=== PATIENT | female | born 1975 | race Caucasian/White ===

== ENCOUNTER 2020-05-28 19:40 | Emergency (ER) | payer BC, OTHER ==
[~2020-05-28 19:40] MED LIST: Iopamidol-370 76% 500 ML 1 ML ONE
--- NOTE | 2020-05-28 20:19 | RAD ---
XR Chest 1 View Portable History: Shortness of breath Comparison: None. Findings: Lungs are clear. No pneumothorax or effusion. Cardiac silhouette and mediastinal contours a re within normal limits. No acute osseous abnormality. Impression: No acute intrathoracic abnormality.
[2020-05-28] MEDS ORDERED: Albuterol 200 PUFF (6.7GM INHALER) INH PRN (20:25)
[2020-05-28] MEDS ORDERED: Dexamethasone 10 MG/ML VIAL SLOW IVP SCH (20:30)
[2020-05-28 20:46] LABS: #Monocytes 0.2 thou/uL (0.11-0.59); #Neutrophils 11.1 thou/uL (1.40-6.50); %Basophils 0.2 % (0.0-1.0); %Eosinophils 0.1 % (0.0-10.0); %Lymphocytes 7.8 % (21.0-51.0); %Monocytes 1.4 % (0.0-10.0); %Neutrophils 90.6 % (42.0-75.0); Hemoglobin 14.2 g/dL (12.0-16.0); Mean Corpuscular HGB CONC 34.2 g/dL (32.0-36.0); Mean Corpuscular Hemoglobin 31.3 pg (27.0-31.0); Mean Corpuscular Volume 91.6 fL (78.0-98.0); Platelet Count 500 thou/uL (130-400); RBC Distribution Width 12.4 % (11.5-14.5); Red Blood Cell (RBC) Count 4.54 mill/uL (4.20-5.40); White Blood Cell (WBC) Count 12.2 thou/uL (4.8-10.8)
[2020-05-28] MEDS ORDERED: Dexamethasone 10 MG/ML VIAL ONE (20:57)
[2020-05-28] MEDS ORDERED: Acetaminophen 500 MG TAB ONE (20:57)
--- NOTE | 2020-05-28 20:59 | CT ---
CTA Angio Chest W WO Con History: Chest pain. COVID exposure Comparison: None. Findings: CT angiogram of the chest was performed after the intravenous administration of contrast. 3 -D rendering provided. No proximal segmental pulmonary arterial filling defect. Pulmonary trunk size is normal. Aortic size is normal. No pericardial effusion. Upper abdomen evaluation is unremarkable aside from postsurgical change of t he stomach. Lungs are clear. No pneumothorax. No effusion. No consolidation. No significant groundglass opacities . Dorsal column stimulator leads are in place. No displaced rib fracture Impression: No pulmonary embolism or evidence of COVID-19 pneumonia.
[2020-05-28] MEDS ORDERED: PROVENTIL INHALER 6.7 G (200 INHALATIONS) ONE (21:00)
[2020-05-28 21:05] LABS: ALT (SGPT) 11 U/L (8-55); AST (SGOT) 12 U/L (5-34); Albumin 4.3 g/dL (3.5-5.0); Alkaline Phosphatase 76 U/L (40-110); Anion Gap 17 mmol/L (10-20); BUN (Urea Nitrogen) 7 mg/dL (7.0-18.7); Bilirubin, Total 0.4 mg/dL (0.2-1.2); Calc. Creatinine Clearance 0 mL/min (70-130); Calcium 9.4 mg/dL (7.8-10.44); Carbon Dioxide 17 mmol/L (22-29); Chloride 108 mmol/L (98-107); Estimated GFR-MDRD 74; Globulin 3.3 g/dL (2.4-3.5); Glucose 145 mg/dL (70-105); Potassium 3.9 mmol/L (3.5-5.1); Protein, Total 7.6 g/dL (6.0-8.3); Sodium 138 mmol/L (136-145)
[2020-05-28] MEDS ORDERED: Albuterol Sulfate 2.5 mg/0.5 ml Neb ONE (21:06)
[2020-05-28] MEDS ORDERED: Albuterol Sulfate 1.25 MG/3 ML NEB ONE (21:06)
[2020-05-28] MEDS ORDERED: Albuterol 200 PUFF (6.7GM INHALER) ONE (21:17)
[2020-05-28] MEDS ORDERED: Metoclopramide HCl 10 MG/2 ML VIAL ONE (22:22)
[2020-05-28 23:19] LABS: Lactic Acid 3.1 mmol/L (0.5-2.2)
== END 2020-05-28 23:56 | disposition home or self-care (01) ==
LOC: ERS 19:40
DX: J06.9 Acute upper respiratory infection, unspecified (principal); Z20.828 Contact with and (suspected) exposure to other viral communicable diseases; E78.5 Hyperlipidemia, unspecified; F17.210 Nicotine dependence, cigarettes, uncomplicated; Z79.899 Other long term (current) drug therapy
CPT/HCPCS: 36415; 71045; 71275; 80053; 83605; 85025; 87040; 93005; 94760; 96361; 96365; 96375; J1100; J2765; J7611; Q9967

== ENCOUNTER 2022-04-20 15:43 | Outpatient (CLI) | payer OTHER | END 2022-04-20 15:44 | disposition home or self-care (01) | LOC: BICMAMMO 15:43 | PROVIDERS: ATTEND Registered Nurse | DX: Z12.31 Encounter for screening mammogram for malignant neoplasm of breast (principal) | CPT/HCPCS: 77063; 77067 ==

== ENCOUNTER 2023-03-28 07:58 | Outpatient (CLI) | payer OTHER | END 2023-03-28 07:59 | disposition home or self-care (01) | LOC: CT 07:58 | PROVIDERS: ATTEND Registered Nurse | DX: G90.523 Complex regional pain syndrome I of lower limb, bilateral (principal); M50.90 Cervical disc disorder, unspecified, unspecified cervical region; M51.9 Unspecified thoracic, thoracolumbar and lumbosacral intervertebral disc disorder; M47.812 Spondylosis without myelopathy or radiculopathy, cervical region; M51.37 Other intervertebral disc degeneration, lumbosacral region; Z98.890 Other specified postprocedural states | CPT/HCPCS: 72125; 72131 ==

== ENCOUNTER 2023-04-11 11:57 | Emergency (ER) | payer OTHER ==
[2023-04-11 12:33] LABS: #Basophils 0.1 thou/uL (0.0-0.2); #Eosinphils 0.2 thou/uL (0.0-0.7); #Monocytes 0.6 thou/uL (0.11-0.59); #Neutrophils 5.6 thou/uL (1.40-6.50); %Basophils 0.6 % (0.0-1.0); %Eosinophils 1.9 % (0.0-10.0); %Lymphocytes 33.2 % (21.0-51.0); %Monocytes 6.1 % (0.0-10.0); %Neutrophils 57.8 % (42.0-75.0); Hemoglobin 12.4 g/dL (12.0-16.0); Mean Corpuscular HGB CONC 31.5 g/dL (32.0-36.0); Mean Corpuscular Hemoglobin 28.1 pg (27.0-31.0); Mean Corpuscular Volume 89.1 fl (78.0-98.0); Mean Platelet Volume 8.6 fL (7.4-10.4); Platelet Count 555 10x3/uL (130-400); RBC Distribution Width 13.2 % (11.5-14.5); Red Blood Cell (RBC) Count 4.42 mill/uL (4.20-5.40); White Blood Cell (WBC) Count 9.7 10x3/uL (4.8-10.8)
[2023-04-11 12:56] LABS: ALT (SGPT) 21 U/L (8-55); AST (SGOT) 20 U/L (5-34); Albumin 4.1 g/dL (3.5-5.0); Alkaline Phosphatase 94 U/L (40-110); Anion Gap 13 mmol/L (10-20); BUN (Urea Nitrogen) 7 mg/dL (7.0-18.7); Bilirubin, Total 0.2 mg/dL (0.2-1.2); Calc. Creatinine Clearance 0 mL/min (70-130); Calcium 9.2 mg/dL (7.8-10.44); Carbon Dioxide 24 mmol/L (22-29); Chloride 108 mmol/L (98-107); Estimated GFR 91; Globulin 3.3 g/dL (2.4-3.5); Glucose 85 mg/dL (70-105); Potassium 4.6 mmol/L (3.5-5.1); Protein, Total 7.4 g/dL (6.0-8.3); Sodium 140 mmol/L (136-145)
[2023-04-11] MEDS ORDERED: traMADol HCl 50 MG TAB ONE (14:33)
[2023-04-11 15:04] LABS: Bilirubin Negative (Negative); Blood, Urine Negative (Negative); Clarity Turbid (Clear); Glucose, Urine (Dipstick) Normal (Negative); Ketone, Urine Negative (Negative); Leukocyte Negative Leu/uL (Negative); Nitrite Negative (Negative); Protein, Urine (Dipstick) Negative (Neg-Trace); Urobilinogen Normal mg/dL (Less than 2)
[2023-04-11] MEDS ORDERED: Dexamethasone 4 MG TAB ONE (15:08)
[2023-04-11] MEDS ORDERED: Morphine 4 MG/ML VIAL ONE ×2 (15:08→18:28)
[2023-04-11] MEDS ORDERED: HYDROcodone/Acetaminophen 10/325 mg Tablet ONE (15:52)
== END 2023-04-11 18:54 | disposition home or self-care (01) ==
LOC: ERS 11:57
DX: R15.9 Full incontinence of feces (principal); M48.061 Spinal stenosis, lumbar region without neurogenic claudication; F17.210 Nicotine dependence, cigarettes, uncomplicated
CPT/HCPCS: 36415; 72131; 80053; 81003; 85025; 85652; 86140; 96372; J2270; J8540

== ENCOUNTER 2023-08-02 16:47 | Observation (INO) | payer OTHER ==
[2023-08-02 17:41] VITALS: BMI 39.0
[2023-08-02] MEDS ORDERED: Nitroglycerin 0.4 MG TAB (25 Tab Bottle) SL PRN (19:14)
[2023-08-02] MEDS ORDERED: Ondansetron PF 4 MG/2 ML Vial IVP PRN ×2 (19:14→19:15)
[2023-08-02] MEDS ORDERED: Ondansetron ODT 4 MG TAB PO PRN (19:14)
[2023-08-02] MEDS ORDERED: Acetaminophen 325 MG TAB PO PRN ×2 (19:14→19:15)
[2023-08-02] MEDS ORDERED: Electrolyte Replacement Protocol 1 EACH FS SCH (19:15)
[2023-08-02] MEDS ORDERED: Ondansetron ODT 4 MG TAB SL PRN (19:15)
[2023-08-02] MEDS ORDERED: Morphine 4 MG/ML VIAL SLOW IVP PRN (19:15)
[2023-08-02] MEDS: Zolpidem Tartrate 5 MG TAB PO SCH (20:30)
[2023-08-02] MEDS: Topiramate 25 MG TAB PO SCH (20:30)
[2023-08-02] MEDS: Atorvastatin Calcium 40 MG TAB PO SCH (20:30)
[2023-08-02] MEDS: Nitroglycerin 2% Ointment 1 INCH/1 GM Packet TOP SCH (20:30)
[2023-08-02 20:37] LABS: Troponin I Less than 0.010 ng/mL (< 0.028)
[2023-08-02] MEDS ORDERED: Pantoprazole 40 MG VIAL IVP SCH (21:00)
[2023-08-02] MEDS: HYDROcodone/Acetaminophen 5/325 mg Tablet PO PRN (22:16)
[2023-08-03] MEDS ORDERED: Ketorolac Tromethamine 30 MG/ML VIAL IVP SCH (00:15)
[2023-08-03] MEDS ORDERED: Metoclopramide HCl 10 MG/2 ML VIAL IVP SCH (00:15)
[2023-08-03] MEDS ORDERED: diphenhydrAMINE 50 MG/ML VIAL IVP SCH (00:15)
[2023-08-03 00:23] LABS: Troponin I Less than 0.010 ng/mL (< 0.028)
[2023-08-03] MEDS: Nitroglycerin 2% Ointment 1 INCH/1 GM Packet TOP SCH ×3 (04:16→20:24)
[2023-08-03 05:01] LABS: #Eosinphils 0.1 thou/uL (0.0-0.7); #Monocytes 0.4 thou/uL (0.11-0.59); #Neutrophils 3.2 thou/uL (1.40-6.50); %Basophils 0.5 % (0.0-1.0); %Eosinophils 2.3 % (0.0-10.0); %Lymphocytes 36.4 % (21.0-51.0); %Monocytes 6.8 % (0.0-10.0); %Neutrophils 53.7 % (42.0-75.0); Hemoglobin 13.2 g/dL (12.0-16.0); Mean Corpuscular HGB CONC 32.2 g/dL (32.0-36.0); Mean Corpuscular Hemoglobin 29.5 pg (27.0-31.0); Mean Corpuscular Volume 91.7 fl (78.0-98.0); Mean Platelet Volume 9.9 fL (7.4-10.4); Platelet Count 381 10x3/uL (130-400); RBC Distribution Width 14.1 % (11.5-14.5); Red Blood Cell (RBC) Count 4.47 mill/uL (4.20-5.40)
[2023-08-03 05:09] LABS: Hemoglobin A1c 5.4 % (4.0-6.0)
[2023-08-03 05:45] LABS: Anion Gap 13 mmol/L (10-20); BUN (Urea Nitrogen) 9 mg/dL (7.0-18.7); Calc. Creatinine Clearance 169 mL/min (70-130); Calcium 9.4 mg/dL (7.8-10.44); Carbon Dioxide 21 mmol/L (22-29); Cardiac Risk 3.8 (Less than 4.5); Chloride 109 mmol/L (98-107); Cholesterol 158 mg/dl (< 200 Desired); Estimated GFR 95; Glucose 86 mg/dL (70-105); HDL Cholesterol 42 mg/dL (>60 Neg Risk); LDL Cholesterol, Calculated 89 mg/dL; Magnesium 2.1 mg/dL (1.6-2.6); Potassium 3.9 mmol/L (3.5-5.1); Sodium 139 mmol/L (136-145); Triglycerides 133 mg/dL (Less than 150)
[2023-08-03] MEDS: HYDROcodone/Acetaminophen 5/325 mg Tablet PO PRN (08:40)
[2023-08-03] MEDS: Clopidogrel Bisulfate 75 MG TAB PO SCH (08:41)
[2023-08-03] MEDS: Topiramate 25 MG TAB PO SCH ×2 (08:41→20:24)
[2023-08-03] MEDS ORDERED: Pantoprazole 40 MG GRANULES PACKET PO SCH (09:00)
[2023-08-03] MEDS ORDERED: Acetaminophen 500 MG TAB PO PRN (10:02)
[2023-08-03] MEDS ORDERED: Morphine 2 MG/ML VIAL SLOW IVP SCH (10:15)
[2023-08-03] MEDS: oxyCODONE 5 MG TAB PO PRN ×2 (15:19→20:24)
[2023-08-03] MEDS: Atorvastatin Calcium 40 MG TAB PO SCH (20:24)
[2023-08-03] MEDS: Zolpidem Tartrate 5 MG TAB PO SCH (20:24)
[2023-08-04] MEDS: Nitroglycerin 2% Ointment 1 INCH/1 GM Packet TOP SCH ×2 (04:53→13:26)
[2023-08-04] MEDS: oxyCODONE 5 MG TAB PO PRN ×2 (05:05→13:24)
[2023-08-04] MEDS: Clopidogrel Bisulfate 75 MG TAB PO SCH (09:27)
[2023-08-04] MEDS: Topiramate 25 MG TAB PO SCH (09:28)
[2023-08-04 16:16] VITALS: BP 123/75; TEMP 98.5
[2023-08-04] MEDS ORDERED: Morphine 2 MG/ML VIAL SLOW IVP SCH (17:00)
== END 2023-08-04 17:30 | disposition home or self-care (01) ==
LOC: INTOOBSV 16:47 → 2SW 16:47
PROVIDERS: ADMIT Hospitalist; ATTEND Hospitalist
DX: R07.89 Other chest pain (principal); M54.50 Low back pain, unspecified; G90.50 Complex regional pain syndrome I, unspecified; F43.10 Post-traumatic stress disorder, unspecified; F41.9 Anxiety disorder, unspecified; E78.5 Hyperlipidemia, unspecified; E66.9 Obesity, unspecified; Z88.6 Allergy status to analgesic agent; Z88.1 Allergy status to other antibiotic agents; F17.210 Nicotine dependence, cigarettes, uncomplicated; Z88.8 Allergy status to other drugs, medicaments and biological substances; Z79.899 Other long term (current) drug therapy; Z68.39 Body mass index [BMI] 39.0-39.9, adult; Z98.890 Other specified postprocedural states; Z90.89 Acquired absence of other organs; Z90.710 Acquired absence of both cervix and uterus
CPT/HCPCS: 36415; 71275; 74174; 78452; 80048; 80061; 83036; 83735; 84443; 85025; 93005; 93010; 93017; 93306; 94760; 96374; 96375; 96376; C9113; G0378; J0153; J1200; J1650; J1885; J2270; J2272; J2405; J2765; Q0162

== ENCOUNTER 2023-10-11 12:00 | Outpatient (CLI) | payer OTHER ==
[2023-10-11 13:20] LABS: #Eosinphils 0.1 10x3/uL (0.0-0.5); #Monocytes 0.6 10x3/uL (0.0-1.1); %Basophils 0.3 % (0.0-2.0); %Eosinophils 1.6 % (0.0-6.0); %Lymphocytes 34.3 % (18.0-47.0); %Monocytes 6.5 % (0.0-10.0); %Neutrophils 57.1 % (40.0-75.0); Hematocrit 42.4 % (34.9-44.5); Mean Corpuscular Hemoglobin 30.3 pg (27.0-33.0); Mean Corpuscular Volume 91.8 fl (81.6-98.3); Mean Platelet Volume 9.7 fl (7.4-10.4); Platelet Count 455 10x3/uL (150-450); RBC Distribution Width 13.2 % (11.5-14.5); Red Blood Cell (RBC) Count 4.62 10x6/uL (3.90-5.03); White Blood Cell (WBC) Count 8.7 10x3/uL (3.5-10.5)
[2023-10-11 13:47] LABS: INR-International Normal Ratio 0.9; PTT 27.4 sec (22.0-33.0); Prothrombin Time 10.1 sec (9.5-12.1)
[2023-10-11 13:55] LABS: ALT (SGPT) 18 U/L (8-55); AST (SGOT) 17 U/L (5-34); Albumin 4.1 g/dL (3.5-5.0); Alkaline Phosphatase 94 U/L (40-110); Anion Gap 11 mmol/L (10-20); BUN (Urea Nitrogen) 10 mg/dL (7.0-18.7); Bilirubin, Direct 0.2 mg/dL (0.1-0.3); Bilirubin, Total 0.5 mg/dL (0.2-1.2); Calc. Creatinine Clearance 0 mL/min (70-130); Calcium 9.2 mg/dL (7.8-10.44); Carbon Dioxide 23 mmol/L (22-29); Chloride 112 mmol/L (98-107); Estimated GFR 70; Globulin 2.7 g/dL (2.4-3.5); Glucose 97 mg/dL (70-105); Potassium 4.2 mmol/L (3.5-5.1); Protein, Total 6.8 g/dL (6.0-8.3); Sodium 142 mmol/L (136-145)
== END 2023-10-11 12:01 | disposition home or self-care (01) ==
LOC: LABBT 12:00
PROVIDERS: ATTEND Internal Medicine Cardiovascular Disease
DX: Z01.818 Encounter for other preprocedural examination (principal)
CPT/HCPCS: 80053; 80076; 85025; 85610; 85730; 93005; 93010

== ENCOUNTER → 2023-10-13 | Day surgery (SDC) | payer OTHER ==
[2023-10-11 12:14] VITALS: BMI 38.2
[~2023-10-13] MED LIST changes: +Diazepam 5 MG TAB ONE; -Iopamidol-370 76% 500 ML 1 ML ONE; +Lidocaine 1% (PF) 30 ML VIAL ONE; +Lidocaine 1% w/Epinephrine 1:100K 20 ML VIAL ONE; +Midazolam HCl 2 mg/2 ml Vial ONE; +Nitroglycerin 50 MG/250 ML BOT 0 ML ONE; +fentaNYL 50 mcg/mL 1 mL Vial ONE
[2023-10-13 07:39] LABS: Cardiac Risk 3.7 (Less than 4.5)
== END ==
LOC: CCL 06:14
PROVIDERS: ATTEND Internal Medicine Cardiovascular Disease
PROC: 4A023N7 Measurement of Cardiac Sampling and Pressure, Left Heart, Percutaneous Approach (ICD-10-PCS; principal; 2023-10-13)
DX: R07.9 Chest pain, unspecified (principal); R00.2 Palpitations; R06.02 Shortness of breath; R94.31 Abnormal electrocardiogram [ECG] [EKG]; E78.00 Pure hypercholesterolemia, unspecified; F41.1 Generalized anxiety disorder; F17.210 Nicotine dependence, cigarettes, uncomplicated; M79.662 Pain in left lower leg; D75.839 Thrombocytosis, unspecified; Z90.3 Acquired absence of stomach [part of]; F43.10 Post-traumatic stress disorder, unspecified; F41.9 Anxiety disorder, unspecified; Z88.6 Allergy status to analgesic agent; Z88.1 Allergy status to other antibiotic agents; Z82.49 Family history of ischemic heart disease and other diseases of the circulatory system; Z88.8 Allergy status to other drugs, medicaments and biological substances
CPT/HCPCS: 80061; 93458; 99152; C1769; J2001; J2250; J3010